=== PATIENT | male | born 1945 | race Caucasian/White ===

== ENCOUNTER → 2022-02-11 | Outpatient (CLI) | payer BC ==
--- NOTE | 2022-02-12 10:00 | NUR ---
Left a message with Christy @ Dr Painter's office today @ [phone] regarding patient being covid positive. Christy is in clinic all day and may not get to her messages until later. So I called the patient to notify him he is positive and Christy will call him to reschedule. The patient has been having "sinus and allergy drainage". He will notify his primary doctor and monitor his symptoms. He did test positive mid October. Also, instructed patient to stay at home.
== END ==
LOC: LAB 10:17
PROVIDERS: ATTEND Surgery
DX: Z01.812 Encounter for preprocedural laboratory examination (principal); U07.1 COVID-19; K40.90 Unilateral inguinal hernia, without obstruction or gangrene, not specified as recurrent
CPT/HCPCS: U0003

== ENCOUNTER 2022-03-13 07:38 | Day surgery (SDC) | payer BC ==
[~2022-03-13] VITALS: Ht 167.6 cm; Wt 65.5 kg
[~2022-03-13 07:38] MED LIST: ATOR40TA59 PO; CINN500C2 PO; FEXO-213 PO; FLUT16SP NS; GLIM2TAB7 PO; HYDROmorphone 2 MG/ML INJ. IVP PRN; IV RINGERS,LACTATED 1000ML 1,000 ML IV SCH; MORPHINE SULFATE 2 MG/ML INJ. IVP PRN; MULT-445 PO; NAPR220T70 PO; PROCHLORPERAZINE 10 MG/2 ML VIAL. IVP PRN; TAMS0.4C97 PO; UBID30CA9 PO; ceFAZolin SODIUM IV Push 1 GM VIAL. IVP PRN; fentaNYL PF VIAL 100 MCG/2 ML VIAL IVP PRN
[2022-03-13 08:27] VITALS: BP 142/78
[2022-03-13] MEDS ORDERED: LIDOCAINE 2% PF 5 ML VIAL. ONE (08:39)
[2022-03-13] MEDS ORDERED: SUCCINYLCHOLINE 200 MG/10 ML VIAL. ONE (08:39)
[2022-03-13] MEDS ORDERED: ONDANSETRON PF 4 MG/2 ML VIAL. ONE (08:39)
[2022-03-13] MEDS ORDERED: SEVOFLURANE 61 TO 120 MINUTES. IH ONE (08:39)
[2022-03-13] MEDS ORDERED: DEXAMETHASONE SOD PHOS 4 MG/ML VIAL ONE (08:39)
[2022-03-13] MEDS ORDERED: fentaNYL PF VIAL 100 MCG/2 ML VIAL ONE ×2 (08:39→10:38)
[2022-03-13] MEDS ORDERED: PROPOFOL 10 MG/ML (20ML) VIAL. IV ONE (08:39)
[2022-03-13] MEDS ORDERED: BUPIVACAINE-EPI 0.5% 30 ML VIAL KIT. ONE (08:40)
--- NOTE | 2022-03-13 08:41 | PDOC1 ---
History and Physical Date of Admission Date of Admission DATE: 03/13/22 TIME: 08:39 History of Present Illness History of Present Illness The patient is a 76-year-old male who is referred with a left inguinal hernia. He noticed a bulge in the area for the last 6 months. The hernia has been most prominent when having bowel function. He notices discomfort mostly during these moments. Past Medical History Past Medical History Hypercholesterolemia, diabetes Past Surgical History Past Surgical History Back surgery, vasectomy, right inguinal hernia repair Social History Smoke: No Current Medications Current Medications Current Medications Fentanyl Citrate (Fentanyl 2ml Vial) 25 mcg PRN Q5MIN PRN IVP MILD PAIN 1-3; Start 03/13/22 at 06:00; Stop 03/14/22 at 05:59 Fentanyl Citrate (Fentanyl 2ml Vial) 50 mcg PRN Q5MIN PRN IVP MODERATE PAIN 4- 6; Start 03/13/22 at 06:00; Stop 03/14/22 at 05:59 Morphine Sulfate (Morphine Sulfate) 1 mg PRN Q10MIN PRN IVP SEVERE PAIN 7-10; Start 03/13/22 at 06:00; Stop 03/14/22 at 05:59 Ringer's Solution 1,000 ml @ 30 mls/hr Q24H IV Last administered on 03/13/22at 08:36; Start 03/13/22 at 06:00; Stop 03/13/22 at 17:59 Hydromorphone HCl (Dilaudid) 0.5 mg PRN Q10MIN PRN IVP SEVERE PAIN 7-10, 2nd CHOICE; Start 03/13/22 at 06:00; Stop 03/14/22 at 05:59 Prochlorperazine Edisylate (Compazine) 5 mg PACU PRN PRN IVP NAUSEA, MRX1; Start 03/13/22 at 06:00; Stop 03/14/22 at 05:59 Cefazolin Sodium (Ancef) 1 gm 1X PREOP PRN IVP PRIOR TO PROCEDURE; Start 03/13/22 at 06:00; Stop 03/13/22 at 15:00 Active Scripts Active Reported Cinnamon (Cinnamon Bark) 500 Mg Capsule 1,000 Mg PO DAILY Coq-10 (Ubidecarenone) 30 Mg Capsule 30 Mg PO DAILY Fexofenadine Hcl 180 Mg Tablet 180 Mg PO DAILY Multivitamins (Multivitamin) 1 Each Tablet 1 Each PO DAILY Fluticasone Propionate Nasal Loda (Fluticasone Propionate) 16 Gm Loda.susp 2 Loda NS DAILY Aleve (Naproxen Sodium) 220 Mg Tablet 220 Mg PO PRN BID PRN Atorvastatin Calcium 40 Mg Tablet 40 Mg PO HS Glimepiride 2 Mg Tablet 2 Mg PO DAILY Flomax (Tamsulosin Hcl) 0.4 Mg Cap.er.24h 0.4 Mg PO HS Allergies Allergies: Coded Allergies: adhesive tape (Verified Adverse Reaction, Intermediate, Unknown, 03/13/22) ROS General: No: Chills, Night Sweats, Fatigue, Malaise, Appetite, Other PSYCHOLOGICAL ROS: No: Anxiety, Behavioral Disorder, Concentration difficultie, Decreased libido, Depression, Disorientation, Hallucinations, Hostility, Irritablity, Memory difficulties, Mood Swings, Obsessive thoughts, Physical abuse, Sexual abuse, Sleep disturbances, Suicidal ideation, Other Eyes: No Blurry vision, No Decreased vision, No Double vision, No Dry eyes, No Excessive tearing, No Eye Pain, No Itchy Eyes, No Loss of vision, No Photophobia, No Scotomata, No Uses contacts, No Uses glasses, No Other HEENT: No: Heacaches, Visual Changes, Hearing change, Nasal congestion, Nasal discharge, Oral lesions, Sinus pain, Sore Throat, Epistaxis, Sneezing, Snoring, Tinnitus, Vertigo, Vocal changes, Other ALLERGY AND IMMUNOLOGY: No: Hives, Insect Bite Sensitivity, Itchy/Watery Eyes, Nasal Congestion, Post Nasal Drip, Seasonal Allergies, Other ENDOCRINE: No: Breast Changes, Galactorrhea, Hair Pattern Changes, Hot Flashes, Malaise/lethargy, Mood Swings, Palpitations, Polydipsia/polyuria, Skin Changes, Temperature Intolerance, Unexpected Weight Changes, Other Respiratory: No: Cough, Hemoptysis, Orthopnea, Pleuritic Pain, Shortness of breath, SOB with excertion, Sputum Changes, Stridor, Tachypnea, Wheezing, Other Cardiovascular: No Chest Pain, No Palpitations, No Orthopnea, No Paroxysmal Noc. Dyspnea, No Edema, No Lt Headedness, No Other Gastrointestinal: No Nausea, No Vomiting, No Abdominal Pain, No Diarrhea, No Constipation, No Melena, No Hematochezia, No Other Genitourinary: No Dysuria, No Frequency, No Incontinence, No Hematuria, No Retention, No Discharge, No Urgency, No Pain, No Flank Pain, No Other, No , No , No , No , No , No , No Musculoskeletal: No Gait Disturbance, No Joint Pain, No Joint Stiffness, No Joint Swelling, No Muscle Pain, No Muscular Weakness, No Pain In:, No Swelling In:, No Other Neurological: No Behavorial Changes, No Bowel/Bladder ControlChng, No Confusion, No Dizziness, No Gait Disturbance, No Headaches, No Impaired Coord/balance, No Memory Loss, No Numbness/Tingling, No Seizures, No Speech Problems, No Tremors, No Visual Changes, No Weakness, No Other Skin: No Dry Skin, No Eczema, No Hair Changes, No Lumps, No Mole Changes, No Mottling, No Nail Changes, No Pruritus, No Rash, No Skin Lesion Changes, No Other, No Acne Physical Exam General: Alert, Oriented X3, Cooperative HEENT: Atraumatic Lungs: Clear to auscultation Heart: RRR Abdomen: Soft, No tenderness Male Genitals Exam: hernia mass (Left inguinal hernia noted, reducible) Vitals Vitals Vital Signs Date Time Temp Pulse Resp B/P (MAP) Pulse Ox O2 Delivery O2 Flow Rate FiO2 03/13/22 08:30 98.2 90 18 142/78 95 Room Air 98.2 Labs Labs Laboratory Tests Test 03/13/22 08:18 Glucose (Fingerstick) 151 mg/dL (70-99) Laboratory Tests Test 03/13/22 08:18 Glucose (Fingerstick) 151 mg/dL (70-99) VTE Prophylaxis Ordered VTE Prophylaxis Devices: Yes VTE Pharmacological Prophylaxi: No Assessment/Plan Assessment/Plan Left inguinal hernia, recommend surgical repair. The details and risks of surgery were discussed with the patient. He understands and would like to proceed. Justifications for Admission Other Justification RACHAEL LEGGETT MD March 13, 2022 08:41
[2022-03-13] MEDS ORDERED: INSULIN LISPRO 100 UNIT/ML 3ML VIAL for OP,RR ONLY. SQ PRN (08:45)
[2022-03-13] MEDS ORDERED: KETAMINE HCL IN NACL, ISO-OSM 50 MG/5 ML SYRINGE ONE (09:05)
[2022-03-13] MEDS ORDERED: PHENYLEPHRINE in 0.9% NACL PF 1 MG/10 ML SYRINGE. IV ONE (09:11)
--- NOTE | 2022-03-13 10:20 | PDOC4 ---
Operative Note Operative Note Operative Note: Preoperative Diagnosis: Left inguinal hernia Postoperative Diagnosis: Same Procedure: Left inguinal hernia pair with mesh Surgeon: In[employer] Integration Engineer: Rony ARANDA; Bre Haywood MS 3 Anesthesia: General EBL: 10 mL Specimen: Cord lipoma, hernia sac to pathology Drains: None Complications: None Indication: The patient is a 76-year-old male who is referred with a left inguinal hernia. He was offered surgical repair. The risks of surgery were discussed which include bleeding, infection, recurrence, pain, anesthetic risk, potential need for additional surgery procedure. He understands and would like to proceed. Description: The patient was taken to the operating room and placed supine on the operating table. General anesthesia was performed. The left groin was shaved and prepped with ChloraPrep and draped with sterile towels, sheets, and an Ioban. An incision was made in the skin lines with a scalpel. Cautery dissection was carried down to the external oblique. The external bleak was opened down to the external ring. The contents of the inguinal canal were digitally mobilized and encircled with a Jessica drain. The patient had a moderate sized indirect hernia sac present. The sac was mobilized from the surrounding cord structures which were preserved. The sac was excised near its base and the excess portion was sent to pathology. The stump was oversewn and inverted. The defect was filled with a medium sized Phasix mesh plug. The plug was sutured into position with 2-0 Vicryl. There was a cord lipoma which was also excised and sent to pathology. The inguinal floor was then reinforced with a Prolene keyhole mesh patch. The mesh was sutured into position with 2-0 Vicryl. A slit was made to accommodate cord structures. The external oblique was closed over the mesh with 2-0 Vicryl. Subcutaneous tissue was closed with 3-0 Vicryl. Skin was approximated with 4 Monocryl and infiltrated with half percent Marcaine with epinephrine. Steri-Strips and a sterile dressing were applied. The patient tolerated the procedure well and was sent to the recovery room in stable condition. At the end of the case all counts were correct. RACHAEL LEGGETT MD March 13, 2022 10:20
[2022-03-13] MEDS ORDERED: OXYC1TAB15 PO (10:21)
--- NOTE | 2022-03-13 10:24 | DISCH ---
DISCHARGE INSTRUCTIONS Condition on Discharge Condition on Discharge: Stable Activity After Discharge Activity Instructions for Disc: Other, see below (No lifting over 20 lbs X4 weeks, no driving while taking pain meds) Diet after Discharge Diet after Discharge: Regular Wound Incision Care Wound/Incision Care: Other, see below (Keep dressing clean and dry X 72 hours, may then remove and shower) Follow-Up Follow up with: Dr Leggett in officein 2 weeks, call for appointment [phone] RACHAEL LEGGETT MD March 13, 2022 10:24
[2022-03-13] MEDS: fentaNYL PF VIAL 100 MCG/2 ML VIAL IVP PRN ×2 (10:41→10:56)
[2022-03-13] MEDS ORDERED: oxyCODONE/APAP 5/325 1 TAB TABLET PO ONE (10:45)
[2022-03-13 11:03] VITALS: BP 137/76
--- NOTE | 2022-03-14 17:22 | PATHOLOGY ---
[facility] Accession Number: [id number] . 01 Material submitted: . PART A: scrotum - LEFT CORD LIPOMA PART B: inguinal area - LEFT INGUINAL HERNIA SAC . 01 Clinical history: . LEFT INGUINAL HERNIA . 02 Diagnosis: A. Fibroadipose tissue, left inguinal: - Lipoma of cord. . B. Segment of mesothelial-lined fibromembranous tissue, left inguinal hernia repair: - Hernia sac, showing congestion and focal submesothelial reactive fibrosis. (JPM:[facility]; 03/14/2022) QTP 03/14/2022 1430 Local . 02 Electronically signed: . Sudheer Baron MD, Pathologist NPI- [id number] . 01 Gross description: . A. The specimen is received in formalin, labeled "Wayne Manchion, left cord lipoma". Received is an unoriented, vaguely ovoid, hurtado-pink to yellow, focally hemorrhagic, fibroadipose tissue, measuring 3.0 x 2.5 x 1.8 cm. The external surface is inked black and the specimen is serially sectioned to reveal unremarkable fibrofatty cut surfaces. The specimen is representatively submitted in cassettes A1 to A2. . B. The specimen is received in formalin, labeled "Wayne Manchion, left inguinal hernial sac". Received is a single, unoriented, hurtado-pink to purple, glistening, membranous soft tissue specimen, measuring 6.3 x 3.5 x 0.4 cm. The specimen is representatively submitted in cassette B1. (JGG; 03/13/2022) JGG/JGG 03/13/2022 2114 Local . 02 Pathologist provided ICD-10: D17.6, K40.90 . 02 CPT . 696621, [id number] Specimen Comment: A courtesy copy of this report has been sent to [phone] Specimen Comment: Report sent to Performed at: [address] [id number] MD Ganesh Sandra MD Phone: [phone] Performed at: 02 [facility] [address] [place], [place] [id number] MD Sudheer Baron MD Phone: [phone]
== END 2022-03-13 11:46 | disposition home or self-care (01) ==
LOC: SURG 07:38
PROVIDERS: ATTEND Surgery
DX: K40.90 Unilateral inguinal hernia, without obstruction or gangrene, not specified as recurrent (principal); E78.00 Pure hypercholesterolemia, unspecified; K21.9 Gastro-esophageal reflux disease without esophagitis; E11.9 Type 2 diabetes mellitus without complications; Z79.899 Other long term (current) drug therapy; Z98.890 Other specified postprocedural states; Z88.8 Allergy status to other drugs, medicaments and biological substances
CPT/HCPCS: 49505; 82962; A4209; A4364; A4930; A6402; C1781; J0330; J0690; J1100; J2370; J2405; J2704; J3010; A4452